=== PATIENT | male | born 1995 | race Two or more races ===

== ENCOUNTER 2024-01-20 08:35 | Outpatient (OUT) | payer OTHER, SELFPAY ==
--- NOTE | 2024-01-20 08:46 | XR_ITS ---
The [address] [address] Patient Name: REX FREED MRN: [id number] date: 1995 Sex: M Assigned Patient Location: [facility] Current Patient Location: [facility] Accession/Order Number: [id number] Exam Date: 01/20/2024 08:50 Report Date: 01/20/2024 09:06 At the request of: OLESYA QUEEN Procedure: XR foot RT min 3V PROCEDURE: XR foot RT min 3V HISTORY: Right Foot Contusion ; heavy object fell on foot; first and second toe pain COMPARISON: None. FINDINGS: BONES:No fracture, acute abnormality, or significant arthropathy. 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 SOFT TISSUES:No visible soft tissue swelling. EFFUSION:None visible. OTHER: Negative. XR/XR foot RT min 3V IMPRESSION: 1. No acute bone abnormality. Electronically authenticated by: DAPHNIE BARBER Date: 01/20/2024 09:06
== END 2024-01-20 08:36 | disposition home or self-care (01) ==
LOC: RAD 01-23 15:31
PROVIDERS: Visit Provider Nurse Practitioner Family
DX: S90.31XA Contusion of right foot, initial encounter (principal)
CPT/HCPCS: 73630

== ENCOUNTER 2025-03-12 16:45 | Emergency (ER) | payer SELFPAY ==
[2025-03-12 16:54] VITALS: BP 163/95; PULSE 76; TEMP 37.1; O2SAT 97; BMI 34.1
--- NOTE | 2025-03-12 17:07 | ECG_ITS ---
The [facility] Test Date: 2025-03-12 Pat Name: REX FREED Department: Room: - Gender: Male Registered Pharmacist: : 1995 Requested By: [id number] Order Number: [id number] Reading MD: JORGE MARINO M.D. Measurements Intervals [place] Rate: 78 P: 40 AK: 114 QRS: 64 QRSD: 112 T: -16 QT: 384 QTc: 418 Interpretive Statements 1100 Sinus rhythm 2210 Short AK interval 2320 Nonspecific intraventricular conduction delay 4068 Nonspecific [place] abnormality 9150 abnormal ECG No previous ECG available for comparison Electronically Signed On 03-12-2025 17:59:28 EDT by JORGE MARINO M.D.
--- NOTE | 2025-03-12 17:11 | ED.GENADUL1 ---
HPI HPI - General Adult General Chief complaint: Chest Pain Stated complaint: CHEST PAIN Time Seen by Provider: 03/12/25 17:04 Source: patient Mode of arrival: walk-in History of Present Illness HPI narrative: 30-year-old male presents to the emergency department for chest pain. He has been having it for a month and 1 very small localized area just below his left nipple. It is sharp and intermittent but he has it every day. He has not had this checked out. No cough or injury or shortness of breath. He has not had this looked at prior to today. Related Data Home Medications ?Medication ?Instructions ?Recorded ?Confirmed No Known Home Medications 03/12/25 03/12/25 Allergies Allergy/AdvReac Type Severity Reaction Status Date / Time No Known Drug Allergies Allergy Verified 03/12/25 16:54 Opioid HPI Opioid Management Most Recent Opioid Data: Last Pain Scale 2 Today, 16:54 Review of Systems ROS Narrative A ten point review of systems is negative except as noted above. PFSH PFSH Social History Little interest or pleasure in doing things: not at all Feeling down, depressed, or hopeless: not at all Exam Narrative Exam Narrative: Nurses note and vital signs reviewed and patient is not hypoxic. General: The patient appears well and in no apparent distress. Patient is resting comfortably on cart. Skin: Warm, dry, no pallor noted. There is no rash noted. Head: Normocephalic, atraumatic Eye: Normal conjunctiva, no drainage Ears, Nose, Mouth, and Throat: oral mucosa is moist. Nares patent. Cardiovascular: Regular Rate and Rhythm; the chest wall has no crepitus bruise rash or abrasion. He seems to have some mild tenderness on palpation Respiratory: Patient is in no distress, no accessory muscle use, lungs are clear to auscultation, no wheezing, rales or rhonchi Back: non-tender GI: Soft and nontender Musculoskeletal: The patient has no evidence of calf tenderness, no pitting edema, symmetrical pulses noted bilaterally Neurological: A&O, normal speech Psychiatric: Cooperative Constitutional Vital Signs, click to edit/add: Last Vital Signs Temp 98.7 F 03/12/25 16:54 Pulse 76 03/12/25 16:54 Resp 16 03/12/25 16:54 BP 163/95 H 03/12/25 16:54 Pulse Ox 97 03/12/25 16:54 O2 Del Method Room Air 03/12/25 16:54 Course Vital Signs Vital signs: Vital Signs Temperature 98.7 F 03/12/25 16:54 Pulse Rate 76 03/12/25 16:54 Respiratory Rate 16 03/12/25 16:54 Blood Pressure 163/95 H 03/12/25 16:54 Pulse Oximetry 97 03/12/25 16:54 Oxygen Delivery Method Room Air 03/12/25 16:54 Temperature 98.7 F 03/12/25 16:54 Pulse Rate 76 03/12/25 16:54 Respiratory Rate 16 03/12/25 16:54 Blood Pressure 163/95 H 03/12/25 16:54 Pulse Oximetry 97 03/12/25 16:54 Oxygen Delivery Method Room Air 03/12/25 16:54 Medical Decision Making MDM Narrative Medical decision making narrative: His workup including troponin is negative. He is able to be discharged home and was given a list of PCPs with whom he can follow-up. Treatment diagnosis and follow-up were discussed with the patient. Differential Diagnosis Differential Diagnosis: Myocardial infarction, pneumothorax, pulmonary embolism, chest wall pain Lab Data Lab results reviewed: Yes I reviewed the patient's lab results Labs: Lab Results 03/12/25 Range/Units 17:17 WBC 9.1 (4.0-11.0) 10^3/uL RBC 4.97 (4.70-6.10) 10^6/uL Hgb 15.5 (14.0-18.0) g/dL Hct 44.4 (42.0-54.0) % MCV 89.3 (80.0-94.0) fL MCH 31.2 (25.9-34.0) pg MCHC 34.9 (29.9-35.2) g/dL RDW 11.7 (11.0-15.0) % Plt Count 283 (150-450) 10^3/uL MPV 10.0 (9.5-13.5) fL Neut % (Auto) 61.2 (43.0-75.0) % Lymph % (Auto) 30.2 (20.5-60.0) % [place] % (Auto) 6.7 (1.7-12.0) % Eos % (Auto) 1.1 (0.9-7.0) % Baso % (Auto) 0.6 (0.2-2.0) % Neut # (Auto) 5.5 (1.4-6.5) 10^3/uL Lymph # (Auto) 2.7 (1.2-3.8) 10^3/uL [place] # (Auto) 0.6 (0.3-0.8) 10^3/uL Eos # (Auto) 0.1 (0.0-0.7) 10^3/uL Baso # (Auto) 0.1 (0.0-0.1) 10^3/uL Abs Immat Gran (auto) 0.02 (0.00-0.03) 10^3/uL Imm/Tot Granulo (auto) 0.2 (0.0-0.5) % Sodium 139 (136-145) mmol/L Potassium 3.9 (3.5-5.1) mmol/L Chloride 103 (98-107) mmol/L Carbon Dioxide 27.7 (21.0-32.0) mmol/L Anion Gap 12.2 BUN 13.0 (7.0-18.0) mg/dL Creatinine 0.81 (0.70-1.30) mg/dL Est GFR ( Amer) >60 (>=60 mL/min/1.73m^2) Est GFR (Non-Af Amer) >60 (>=60 mL/min/1.73m^2) BUN/Creatinine Ratio 16.0 Glucose 92 (74-106) mg/dL Calcium 9.3 (8.5-10.1) mg/dL Troponin I High Sens 5.6 (4.0-76.1) pg/mL Imaging Data Chest x-ray: Radiologist's impression: No acute cardiopulmonary process ECG Data Attestation: I personally reviewed and interpreted this ECG as follows: (EKG on my interpretation shows normal sinus rhythm with rate of 78 and no acute change.) Discharge Plan Discharge Chief Complaint: Chest Pain Clinical Impression: Atypical chest pain Patient Disposition: Home, Self-Care Time of Disposition Decision: 17:58 Condition: Good Mode of Transportation: Private Vehicle Prescriptions / Home Meds: No Action No Known Home Medications Print Language: Romansh Instructions: Chest Wall Pain (ED) Referrals: Physician,Non-Staff, [Primary Care Provider] - 1 week
[2025-03-12 17:22] LABS: Basophils Absolute Auto 0.1 10^3/uL (0.0-0.1); Basophils Percent Auto 0.6 % (0.2-2.0); Eosinophils Absolute Auto 0.1 10^3/uL (0.0-0.7); Eosinophils Percent Auto 1.1 % (0.9-7.0); Hematocrit 44.4 % (42.0-54.0); Hemoglobin 15.5 g/dL (14.0-18.0); Immature Granulocytes Abs Auto 0.02 10^3/uL (0.00-0.03); Immature Granulocytes Pct Auto 0.2 % (0.0-0.5); Lymphocytes Absolute Auto 2.7 10^3/uL (1.2-3.8); Lymphocytes Percent Auto 30.2 % (20.5-60.0); Mean Corpuscular HGB Conc 34.9 g/dL (29.9-35.2); Mean Corpuscular Hemoglobin 31.2 pg (25.9-34.0); Mean Corpuscular Volume 89.3 fL (80.0-94.0); Monocytes Absolute Auto 0.6 10^3/uL (0.3-0.8); Monocytes Percent Auto 6.7 % (1.7-12.0); Neutrophils Absolute Auto 5.5 10^3/uL (1.4-6.5); Neutrophils Percent Auto 61.2 % (43.0-75.0); Platelet Count 283 10^3/uL (150-450); Red Blood Count 4.97 10^6/uL (4.70-6.10); Red Cell Distribution Width 11.7 % (11.0-15.0); White Blood Count 9.1 10^3/uL (4.0-11.0)
[2025-03-12 17:38] LABS: Anion Gap 12.2; Calcium 9.3 mg/dL (8.5-10.1); Carbon Dioxide 27.7 mmol/L (21.0-32.0); Chloride 103 mmol/L (98-107); Estimated GFR (African America >60 (>=60 mL/min/1.73m^2); Estimated GFR (Non-African Ame >60 (>=60 mL/min/1.73m^2); Glucose 92 mg/dL (74-106); Potassium 3.9 mmol/L (3.5-5.1); Sodium 139 mmol/L (136-145); Troponin I High Sensitivity 5.6 pg/mL (4.0-76.1)
== END 2025-03-12 18:38 | disposition home or self-care (01) ==
PROVIDERS: Emergency Provider Emergency Medicine
DX: R07.89 Other chest pain (principal)
CPT/HCPCS: 36415; 71045; 80048; 84484; 85025; 93005; 99285